=== PATIENT | male | born 1985 ===

== ENCOUNTER 2024-08-23 09:45 | Emergency (ER) | payer BC ==
[~2024-08-23] VITALS: Ht 162.6 cm; Wt 94.8 kg
[2024-08-23 09:58] VITALS: BP 155/91; PULSE 68; RESP 18; TEMP 98.7; O2SAT 99
== END 2024-08-23 10:22 | disposition home or self-care (01) ==
LOC: ER 09:45
DX: J06.9 Acute upper respiratory infection, unspecified (principal); Z88.0 Allergy status to penicillin
CPT/HCPCS: 99282